=== PATIENT | male | born 1980 | race Caucasian/White ===

== ENCOUNTER 2016-09-18 16:19 | Observation (INO) | payer BC ==
[2016-09-18] MEDS ORDERED: Aspirin Low Dose CHEW TAB* 81 MG PO ONE (17:00)
--- NOTE | 2016-09-18 17:38 | RAD ---
Indication: Chest pain, jaw pain. Single frontal view of the chest performed at 1725 hours was reviewed. No prior study is available for comparison. No mediastinal shift is noted. Heart is of normal size and configuration. Lung eason appear clear. IMPRESSION: NO ACTIVE CARDIOPULMONARY DISEASE IS NOTED.
[2016-09-18 17:41] LABS: Hematocrit 46 % (42-52); Hemoglobin 15.6 g/dl (14.0-18.0); Mean Corpuscular HGB Conc 34 g/dl (31-36); Mean Corpuscular Hemoglobin 30 pg (27-31); Mean Corpuscular Volume 90 fL (80-94); Mean Platelet Volume 8 um3 (7.4-10.4); Red Blood Count 5.15 10^6/ul (4.0-5.4); Red Cell Distribution Width 14 % (10.5-15); White Blood Count 6.8 10^3/ul (3.5-10.8)
[2016-09-18 17:56] LABS: Albumin 4.8 g/dL (3.2-5.2); BUN/Creatinine Ratio 11.6 (8-20); Calcium 9.4 mg/dL (8.6-10.3); EGFR African American 95.4 (>60); EGFR Non-African American 74.2 (>60); Globulin 2.8 g/dL (2-4); Potassium 3.8 mmol/L (3.5-5.0); Total Bilirubin 0.3 mg/dL (0.2-1.0); Total Protein 7.6 g/dL (6.4-8.9)
[2016-09-18] MEDS ORDERED: Ondansetron INJ* 2 MG/ML VIAL IV PRN (20:46)
[2016-09-18] MEDS ORDERED: Acetaminophen TAB* 325 MG PO PRN (20:46)
--- NOTE | 2016-09-19 00:25 | HP ---
HISTORY AND PHYSICAL: DATE OF ADMISSION: 09/18/16 PRIMARY CARE PROVIDER: None. ATTENDING PHYSICIAN WHILE IN THE HOSPITAL: Dr. Kamari Wynn* (report dictated by Yasmany Brumfield NP). CHIEF COMPLAINT: Chest pain. HISTORY OF PRESENT ILLNESS: Mr. Leary is a 36-year-old male patient who is relatively healthy; however, over the last 2 weeks, he has had worsening chest discomfort and pressure radiating into the jaw down the arm particularly with exertion off and on. He noticed couple of days ago, he was doing [email or web address] work for work and he had this stopped because he was getting chest heaviness and discomfort. 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 He says he just did not feel well. He had to sit down. His , who is a registered nurse, urged him to go to the ER particularly because that he had been having symptoms off and on for couple of weeks. He does state that at times, he does get short of breath with this. He denies having any nausea or any diaphoresis with this. He says the symptoms today lasted about half an hour. Last episode was around 15:30. He has noticed that the frequency has been increasing over the last couple of weeks. He does have a former history of smoking and there was concern because of his chest discomfort, the hospitalist service was asked to evaluate for admission. PAST MEDICAL HISTORY: Denied. PAST SURGICAL HISTORY: He has had vasectomy. HOME MEDICATIONS: Denied. ALLERGIES TO MEDICATIONS: Include no known drug allergies. FAMILY HISTORY: The mother had a history of rheumatoid arthritis and hyperthyroid. Father's history is reviewed and noncontributory. SOCIAL HISTORY: He is a former smoker. He quit 10 years ago. He does drink about 2 beers on a nightly basis. Surrogate decision maker is his , Darrell. REVIEW OF SYSTEMS: There is no documented fever. He denied having any significant weight change. There was no double vision. There is no ear discharge. There is no rhinorrhea. There is no sore throat. He did admit to having chest pain. No orthopnea. No nocturnal dyspnea. There is no abdominal pain. No loss of consciousness. No pruritus, no skin ulceration. Review of 14 systems completed, all others negative. PHYSICAL EXAMINATION GENERAL: At this time, Mr. Leary is a 36-year-old male patient. He appears well nourished, well developed. He is sitting in the ER stretcher. He does not appear to be in any acute distress. VITAL SIGNS: Blood pressure 117/80, pulse 89, respirations 20, O2 sat of 100%, temperature 99.2. HEENT: Head is atraumatic and normocephalic. Eyes: EOMs are intact. Sclerae anicteric and not pale. Throat: Oral mucosa appears to be moist, no oropharyngeal erythema. NECK: Supple. LUNGS: Clear to auscultation bilaterally. No wheezes, rales, or rhonchi. HEART: Sounds S1, S2. Regular rate and rhythm. No murmurs, rubs, or gallops. ABDOMEN: Soft, flat, nontender. Bowel sounds present. EXTREMITIES: Pulses were 2+ throughout. He is able to move all 4 extremities with 5/5 strength. NEUROLOGIC: He is awake, he is alert, he is oriented x3. Tongue midline. [employer] Special Education Teacher were equal. No gross focal deficits. SKIN: Intact. DIAGNOSTIC STUDIES/LAB DATA: Labs today revealed WBC of 6.8, RBC of 5.15, hemoglobin 15.6, hematocrit of 46, and platelet count of 226. Sodium was 138, potassium was 3.8, chloride of 105, bicarb of 23, BUN 13, creatinine 1.12, glucose 88, lactic 1.6, calcium 9.4. Total bilirubin 0.3, AST 21, ALT 22, and alk phos 62. Troponin 0. Albumin of 4.8. He had a chest x-ray obtained today, which showed no acute cardiopulmonary disease. There was an EKG obtained today, which shows a normal sinus rhythm, rate of 82. He had minimal elevation in V2 and 3 but it could be early repol. No other EKGs for comparison. Old medical records reviewed. ASSESSMENT AND PLAN: Mr. Leary is a 36-year-old male patient coming into the ER today with complaints of exertional chest pain that did radiate to the jaw, down the arm. He had association of shortness of breath and he is noticed that the frequency has been increasing and he had chest discomfort today lasting about 30 minutes, which is most severe that it has been. I am going to go ahead and admit him under observation status for: 1. Chest pain: Again, his story is concerning. I do think he should stay until Tuesday unfortunately for a stress test because of the story being so concerning for possible acute coronary syndrome. He does have the risk factor of smoking. It could be anxiety. He does state that he has a lot on his plate right now, but again being that the fact that he had chest pain the other day while working and he has been noticing the pain off and on with exertion frequency increasing. His story is concerning. I think for now we get his troponin, get serial EKGs, check his lipids in the morning. I will check his A1c. If his troponins are negative, then again proceed to stress test on Tuesday and on the time being if his troponin do go up, obviously I will get a Cardiology consult and I treat him with medical management and obviously get cardiology involved for further interventional management if his troponins were to go up. Again, we will follow. 2. DVT prophylaxis: He will be placed on SCDs. 3. Fluids, electrolytes, and nutrition: He can have a heart healthy diet and he will be n.p.o. after midnight on Tuesday. 4. Code status: Full code. TIME SPENT: Time spent on the admission was 60 minutes; greater than half the time was spent [id number] with the patient obtaining my history and physical, the other half time was spent going over the plan of care with the patient and implementing plan of care. I did discuss the plan of care with my attending, Dr. Wynn, he is in [place] [id number]/[facility] #: [id number] YANETH
[2016-09-19 06:24] LABS: BUN/Creatinine Ratio 14.3 (8-20); Calcium 9.3 mg/dL (8.6-10.3); EGFR African American 102.8 (>60); EGFR Non-African American 79.9 (>60); HDL Cholesterol 36.1 mg/dL; Potassium 4.1 mmol/L (3.5-5.0)
[2016-09-19 08:25] LABS: Hematocrit 44 % (42-52); Hemoglobin 15.1 g/dl (14.0-18.0); Mean Corpuscular HGB Conc 34 g/dl (31-36); Mean Corpuscular Hemoglobin 31 pg (27-31); Mean Corpuscular Volume 90 fL (80-94); Mean Platelet Volume 9 um3 (7.4-10.4); Red Blood Count 4.87 10^6/ul (4.0-5.4); Red Cell Distribution Width 14 % (10.5-15); White Blood Count 7.1 10^3/ul (3.5-10.8)
[2016-09-19] MEDS: Aspirin EC Low Dose* 81 MG TAB.EC PO SCH (09:52)
--- NOTE | 2016-09-19 17:55 | PN ---
Subjective Date of Service: 09/19/16 Interval History: This is an active 36 yo male who reports intermittent chest pain that radiates into his jaw and down his arm with exertion. Here in the hospital, he states, "I 'm fine because I haven't been doing anything." He denies any other concerns, including fever/chills, SOB, n/v. Family History: Unchanged from Admission Social History: Unchanged from Admission Past Medical History: Unchanged from Admission Objective Active Medications: Acetaminophen (Tylenol Tab*) 650 mg PO Q4H PRN PRN Reason: FEVER/PAIN Aspirin (Aspirin Ec Low Dose*) 81 mg PO DAILY OSMANI Last Admin: 09/19/16 09:52 Dose: 81 mg Ondansetron HCl (Zofran Inj*) 4 mg IV Q6H PRN PRN Reason: NAUSEA Vital Signs 09/18/16 09/18/16 09/19/16 22:24 22:30 00:09 Temperature 98.3 F 98.1 F Pulse Rate 79 92 75 Respiratory 16 21 16 Rate Blood Pressure 137/76 120/62 123/68 (mmHg) O2 Sat by Pulse 97 97 99 Oximetry 09/19/16 09/19/16 09/19/16 03:58 07:49 08:00 Temperature 98.3 F 98.2 F Pulse Rate 71 74 Respiratory 16 16 16 Rate Blood Pressure 118/70 123/72 (mmHg) O2 Sat by Pulse 97 99 Oximetry 09/19/16 09/19/16 11:39 15:37 Temperature 98.3 F 98.8 F Pulse Rate 73 96 Respiratory 16 18 Rate Blood Pressure 109/72 119/67 (mmHg) O2 Sat by Pulse 98 98 Oximetry Oxygen Devices in Use Now: None Appearance: Well appearing male patient, lying in bed, NAD Eyes: PERRLA Ears/Nose/Mouth/Throat: Mucous Membranes Moist Neck: NL Appearance and Movements; NL JVP Respiratory: Symmetrical Chest Expansion and Respiratory Effort, Clear to Auscultation Cardiovascular: NL Sounds; No Murmurs; No JVD, RRR Abdominal: NL Sounds; No Tenderness; No Distention Extremities: No Edema Skin: No Rash or Ulcers Neurological: Alert and Oriented x 3 Lines/Tubes/Other Access: Clean, Dry and Intact Peripheral IV Nutrition: Taking PO's Result Diagrams: 09/19/16 06:01 04/23/17 06:01 Assess/Plan/Problems-Billing Assessment: This is a 36 yo male with a hx of tobacco use who presented to the ED on 09/18 with concern for exertional chest pain. - Patient Problems (1) Chest pain Code(s): R07.9 - CHEST PAIN, UNSPECIFIED Comment: Denies chest pain currently Minimal ST elevations seen in V2, V3 Troponins negative Given presentation and abnormal lipid panel and hx of tobacco use, will pursue stress test in AM prior to d/c Continue ASA (2) Dyslipidemia (high LDL; low HDL) Code(s): E78.4 - OTHER HYPERLIPIDEMIA Comment: Education provided on dietary modifications He prefers lifestyle management over starting medications, if possible. Outpatient f/u with PCP (3) DVT prophylaxis Code(s): LBB9108 - Comment: SCDs Status and Disposition: OBV admit. Anticipate d/c tomorrow.
[2016-09-20 04:15] VITALS: BP 112/67
--- NOTE | 2016-09-20 10:01 | RAD ---
Edited for charges. INDICATION: Exertional chest pain. Former tobacco use. COMPARISON: None. TECHNIQUE: 10.830 mCi of Tc-99m Myoview were administered IV. SPECT images of the heart were obtained. Later on the same day under the direction of Dr. Grimaldo, an exercise stress test was performed. The patient achieved a peak heart rate of 163 bpm, 89 % of the age- predicted maximum. Subsequently, the patient was given an IV injection of 25.800 mCi Tc- 99m Myoview. SPECT images of the heart were obtained and a gated wall motion study was performed. FINDINGS: Gated wall motion images were obtained at stress and demonstrate wall motion to be within normal limits. The calculated left ventricular ejection fraction is 60 % at stress. Estimated LEFT ventricular end diastolic volume is 110 mL. TID 1.04. Based on review of the attenuation corrected and non corrected images the distribution of radiopharmaceutical within the myocardium on the stress and rest images is within normal limits. Photopenia related to RIGHT ventricle insertion noted. No fixed or reversible regions of hypoperfusion evident. IMPRESSION: 1. No evidence for stress induced myocardial ischemia or presence of an infarct. 2. Normal left ventricular wall motion and ejection fraction. ASSESSMENT: LOW RISK. Based on imaging criteria from ACC/AHA 2002 Guideline Update for the Management of Patients With Chronic Stable Angina Table 23. Noninvasive Risk Stratification. MTDD
[2016-09-20] MEDS: Aspirin EC Low Dose* 81 MG TAB.EC PO SCH (10:53)
--- NOTE | 2016-09-21 02:03 | DS ---
DISCHARGE SUMMARY: DATE OF ADMISSION: 09/18/16 DATE OF DISCHARGE: 09/20/16 PRIMARY CARE PROVIDER: None. SUPERVISING PHYSICIAN: Irene Hankins MD.* (DICTATED BY DOROTHY LASSITER) PRIMARY DISCHARGE DIAGNOSIS: Chest pain. SECONDARY DISCHARGE DIAGNOSIS: Hyperlipidemia. DISCHARGE MEDICATIONS: None. MEDICATION CHANGES: None. HOSPITAL IMAGIN. Chest x-ray, 09/18/16, shows no acute process. 2. Nuclear stress test, 09/20/16, is read as a low-risk study without evidence of ischemia or infarct. 3. EKG x3 demonstrates a sinus rhythm with nonspecific ST changes in leads V2 and V3, which remain unchanged on serial repeats. HOSPITAL COURSE: This is an otherwise healthy 36-year-old gentleman, who presented to the emergency department with complaints of chest pain. The patient had been having intermittent chest pain associated with exertion as well as shortness of breath for the last couple of weeks. Pain had been radiating to his jaw and arm. His initial evaluation in the emergency department was benign. He had a normal CBC and comprehensive metabolic panel. His initial troponin was negative as was a chest x-ray. His EKG showed some nonspecific changes in precordial leads. The patient was subsequently admitted to observation status for stress testing based on his symptoms to be cardiac in origin. The patient also has a smoking history increasing his risk further for a cardiovascular event. The patient remained asymptomatic throughout his hospital stay. No changes on telemetry and serial troponins remained negative. He underwent nuclear stress testing on day of discharge, which was read as a low-risk study without evidence for ischemia or infarct. Fasting lipid panel was performed, which demonstrated hyperlipidemia with a total cholesterol of 203 and an LDL of 126 and triglycerides of greater than 200. The patient does not require statin therapy based on risk factors, but did recommend lifestyle adjustment. DISPOSITION: The patient is being discharged to home without any changes to home medications. Recommend reducing animal fats to reduce total cholesterol and establishing with primary care provider for further preventative care. DOROTHY LASSITER [id number]/[facility] #: [id number] [facility]
--- NOTE | 2016-09-21 08:48 | ED ---
Jeferson Evans Matthew, scribed for Jose Eduardo Lucio MD on 09/18/16 at 1824 . HPI Chest Pain - HPI Summary HPI Summary: A 36 y/o male presents to the ED with sudden chest pain since a couple of hours ago. The pain radiates into the left shoulder and down the arm. He does not have pain currently, but he also had chest pain yesterday. Associated symptoms left shoulder pain, fatigue, nausea, and left sided jaw pain for the past 2 days - worse with chewing. The patient denies pedal edema, leg pain, fever, chills, diaphoresis, and urinary symptoms. He had a couple of beers after shooting today and wasn't out of the ordinary. The patient's last drink was at 15:00 and he uses his right shoulder to shoot. Today, he stated everything seemed abnormal and he felt weird, which prompted him to present to the ED. 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 He's also been recently stressed, because he lost a lot of money yesterday from the rain. His last physical was in May. No PMHx of HTN, diabetes, or HLD. No FHx of CAD or blood clots. - History of Current Complaint Chief Complaint: EDChestPainROMI Time Seen by Provider: 09/18/16 16:59 Hx Obtained From: Patient Onset/Duration: Started Days Ago, Atraumatic, Still Present Timing: Intermittent Initial Severity: Mild Current Severity: Mild Pain Intensity: 2 Pain Scale Used: 0-10 Numeric Associated Signs and Symptoms: Positive: Chest Pain, Nausea, Other: - left jaw pain - constant for 2 days; hurts to chew; Left shoulder pain. Negative: Fever , Chills, Diaphoresis, Calf Pain/Swelling - Allergy/Home Medications Allergies/Adverse Reactions: Allergies Allergy/AdvReac Type Severity Reaction Status Date / Time No Known Allergies Allergy Verified 09/18/16 17:23 Home Medications: Home Medications NK [No Home Medications Reported] 09/18/16 [History Confirmed 09/18/16] PMH/Surg Hx/FS Hx/Imm Hx Endocrine/Hematology History: Denies: Hx Diabetes Cardiovascular History: Denies: Hx Hypercholesterolemia, Hx Hypertension Infectious Disease History: Denies: Traveled Outside the [place] in Last 30 Days - Family History Known Family History: Negative: Cardiac Disease Family History: No FHx of blood clots - Social History Occupation: Employed Full-time Lives: With Family Alcohol Use: Occasionally Hx Substance Use: No Substance Use Type: Reports: None Hx Tobacco Use: Yes Smoking Status (MU): Current Some Day Smoker Review of Systems Positive: Fatigue. Negative: Fever, Chills, Skin Diaphoresis Eyes: Negative Negative: Erythema ENT: Other - left jaw pain Cardiovascular: Negative Negative: Chest Pain Respiratory: Negative Negative: Shortness Of Breath, Cough Gastrointestinal: Negative Positive: Nausea. Negative: Abdominal Pain, Vomiting, Diarrhea Genitourinary: Negative Negative: dysuria, incontinence Positive: Myalgia - left shoulder pain. Negative: Edema Skin: Negative Negative: Rash Neurological: Negative Negative: Headache Psychological: Normal All Other Systems Reviewed And Are Negative: Yes Physical Exam Triage Information Reviewed: Yes Vital Signs On Initial Exam: Initial Vitals Temp Pulse Resp BP Pulse Ox 97.5 F 86 20 139/86 100 09/18/16 16:22 09/18/16 16:22 09/18/16 16:22 09/18/16 16:22 09/18/16 16:22 Vital Signs Reviewed: Yes Appearance: Positive: Well-Appearing, No Pain Distress Skin: Positive: Warm, Dry Head/Face: Positive: Other - Normocephalic; Atraumatic Eyes: Positive: Conjunctiva Clear Dental: Negative: Cervical Lymphadenopathy Neck: Positive: No Lymphadenopathy, Other: - Full ROM; No JVD Respiratory/Lung Sounds: Positive: Other - Normal Effort; No respiratory distress. Negative: Rales, Stridor, Tracheal Deviation, Wheezes Cardiovascular: Positive: RRR, Other - Rhythm regular, rate normal, Heart sounds normal; Intact distal pulses; The pedal pulses are 2+ and symmetric. Radial pulses are 2+ and symmetric. Negative: Murmur Abdomen Description: Positive: Nontender, Soft, Other: - No Rebound. Negative: Distended, Guarding Musculoskeletal: Negative: Edema Left, Edema Right Neurological: Positive: Alert, Oriented to Person Place, Time Psychiatric: Positive: Affect/Mood Appropriate Diagnostics - Vital Signs Vital Signs Temp Pulse Resp BP Pulse Ox 09/18/16 16:22 97.5 F 86 20 139/86 100 - Laboratory Result Diagrams: 09/18/16 17:30 09/18/16 17:30 Lab Statement: Any lab studies that have been ordered have been reviewed, and results considered in the medical decision making process. - Radiology CXR Xray Interpretation: No Acute Changes - IMPRESSION: NO ACTIVE CARDIOPULMONARY DISEASE IS NOTED. Radiology Interpretation Completed By: Radiologist - EKG 16:51 Cardiac Rate: NL - 82 bpm EKG Rhythm: Sinus Rhythm EKG Interpretation: No STEMI Re-Evaluation - Re-Evaluation First Eval Re-Evaluation Time: 19:40 Change: Improved Comment: The patient continues to be chest pain free. Chest Pain Course/Dx - Course Assessment/Plan: A 36 y/o male presents to the ED with sudden chest pain since a couple of hours ago. The pain radiates into the left shoulder and down the arm. He does not have pain currently, but he also had chest pain yesterday. Associated symptoms left shoulder pain, fatigue, nausea, and left sided jaw pain for the past 2 days - worse with chewing. The patient denies pedal edema, leg pain, fever, chills, diaphoresis, and urinary symptoms. Labs were reviewed and troponin 1 was 0.00 trop 2 was 0.00. CXR shows no acute cardiopulmonary disease. EKG shows NSR at 82 bpm. On revaluation the patient continued to be chest free. Discussed the patient with Dr. Wynn who will admit the patient into his services for further cardiac work-up. - Diagnoses Provider Diagnoses: angina - Provider Notifications Discussed Care Of Patient With: Dr. Wynn (Hospitalist) at 19:48 -- Notified of paitent's history and will consult on the patient. Discharge - Discharge Plan Condition: Stable Disposition: ADMITTED TO [facility] documentation as recorded by the Jeferson lambert Matthew accurately reflects the service I personally performed and the decisions made by me, Jose Eduardo Lucio MD.
== END 2016-09-20 11:50 | disposition home or self-care (01) ==
LOC: ED 16:19 → MEDTELE 22:23
PROVIDERS: ADMIT Internal Medicine; ATTEND Internal Medicine
DX: R07.9 Chest pain, unspecified (principal); E78.5 Hyperlipidemia, unspecified; Z87.891 Personal history of nicotine dependence; R06.02 Shortness of breath
CPT/HCPCS: 36415; 71010; 78452; 80048; 80053; 80061; 83036; 83605; 84484; 85025; 93005; 93017; 99284; A9270-GY; A9502; G0378

== ENCOUNTER 2019-01-01 08:37 | Emergency (ER) | payer BC ==
[2019-01-01 08:56] VITALS: BP 125/84
--- NOTE | 2019-01-01 09:06 | UC ---
General HPI - HPI Summary HPI Summary: 1. sore throat and R ear pain evolving over 2 weeks. + headache. no uri or fever. 2. had a tiny blister L palm about 10 days ago. opened it with his pocket knife and then got 6 more around it. area a little sore with pressure to the site. no additional spread. No joint pain. - History of Current Complaint Chief Complaint: UCGeneralIllness Stated Complaint: RT EAR PAIN,ST,SKIN CONCERN Time Seen by Provider: 01/01/19 08:58 Hx Obtained From: Patient Onset/Duration: Gradual Onset Timing: Constant Pain Intensity: 6 - Allergy/Home Medications Allergies/Adverse Reactions: Allergies Allergy/AdvReac Type Severity Reaction Status Date / Time No Known Allergies Allergy Verified 01/01/19 08:57 PMH/Surg Hx/FS Hx/Imm Hx Endocrine History: Dyslipidemia - Surgical History Surgical History: None - Family History Known Family History: Negative: Cardiac Disease Family History: No FHx of blood clots - Social History Occupation: Employed Full-time Alcohol Use: Occasionally Substance Use Type: None Smoking Status (MU): Current Some Day Smoker Have You Smoked in the Last Year: No Review of Systems All Other Systems Reviewed And Are Negative: Yes Constitutional: Negative: Fever, Chills Skin: Positive: Rash - L palm Eyes: Negative: Eye Redness ENT: Positive: Sore Throat, Ear Ache - R. Negative: Nasal Discharge Respiratory: Negative: Shortness Of Breath, Cough Neurological: Positive: Headache Physical Exam Triage Information Reviewed: Yes Appearance: Well-Appearing Vital Signs: Initial Vital Signs Temp 97.1 F 01/01/19 08:52 Pulse 59 01/01/19 08:52 Resp 16 01/01/19 08:52 BP 125/84 01/01/19 08:52 Pulse Ox 100 01/01/19 08:52 Vital Signs Reviewed: Yes Eyes: Positive: Conjunctiva Clear ENT: Positive: Pharyngeal erythema - deep with moderate swelling R slightly greater that L., TMs normal, Uvula midline. Negative: Nasal congestion, Nasal drainage, Trismus, Muffled voice, Hoarse voice Neck: Positive: Supple, Tenderness @ - peritonsilar, Enlarged Nodes @ - peritonsilar nodes R>L Respiratory: Positive: No respiratory distress Cardiovascular: Positive: RRR Musculoskeletal: Positive: ROM Intact Neurological: Positive: Alert Psychological: Positive: Age Appropriate Behavior Skin Exam: Normal Skin: Positive: Rashes - small vesicular cluster L palm and base of 1 finger. one site unroofed. no erythema, streaking or discharge. hand has full s/v/m function. Course/Dx - Differential Dx - Multi-Symptom Differential Diagnoses: Other - rash on palm likely herpetic but dyshydrotic eczema possible. no concern for bacterial infection or joint infection. pt declined antiviral tx. throat concerning for cellulitis, no overt abscess. rapid strep=neg; however, hx and pe support tx for presumptive infection. - Diagnoses Provider Diagnosis: Pharyngitis Discharge - Sign-Out/Discharge Documenting (check all that apply): Patient Departure All imaging exams completed and their final reports reviewed: No Studies - Discharge Plan Condition: Stable Disposition: HOME Prescriptions: Amoxicillin PO (*) [Amoxicillin 500 MG CAP*] 500 mg PO Q12H 10 Days #20 cap Patient Education Materials: Acute Rash (ED), Pharyngitis (ED) Referrals: Semaj Phillips MD [Medical Doctor] - Additional Instructions: FOLLOW UP IF NOT BETTER IN 5 - 7 DAYS OR SOONER IF WORSE. - Billing Disposition and Condition Condition: STABLE Disposition: Home
[2019-01-01] MEDS ORDERED: Dexamethasone TAB* 4 MG PO ONE (09:11)
== END 2019-01-01 09:40 | disposition home or self-care (01) ==
LOC: UCCORT 08:37
DX: J02.9 Acute pharyngitis, unspecified (principal); R21 Rash and other nonspecific skin eruption; F17.200 Nicotine dependence, unspecified, uncomplicated
CPT/HCPCS: 87651; 99212; G0463; J8540